=== PATIENT | female | born 1980 | race Caucasian/White ===

== ENCOUNTER → 2018-03-04 | Outpatient (CLI) | payer BC ==
--- NOTE | 2018-03-04 16:34 | KCIC ---
MRI Brain without contrast History: Left facial numbness, numbness in the face and legs for 2 weeks, headaches, blurred vision Technique: Multiplanar, multisequential noncontrast MR imaging was performed of the brain. Comparison: None Findings: There is no evidence of recent infarct or cytotoxic edema. The ventricles, sulci, and cisterns are within normal limits in size and configuration. There is no significant midline shift, intraaxial mass effect, or focal abnormal extra-axial fluid collection. Appearance of foci of increased FLAIR signal in the region of bilateral basal ganglia is likely artifactual as not confirmed on the T2 sequence. There is a tiny focus of T2 and FLAIR hyperintense signal of the posterior left centrum semiovale. There is no significant hemosiderin deposition of the brain parenchyma. There is preservation of the major intracranial flow-voids at the skull base. The mastoid air cells are aerated. The cerebellar tonsils are normal in location. There is no significant abnormality of the pineal gland or pituitary gland. Paranasal sinuses are mostly aerated other than negligible patchy ethmoid air cell mucosal thickening. There is preserved marrow signal of the clivus. Impression: 1. Other than a tiny focus of likely nonspecific gliosis of the posterior left centrum semiovale, no significant intracranial abnormality is identified. Electronically signed by: Gbaino Mccarty MD (03/04/2018 4:30 PM) [id number]
== END | disposition home or self-care (01) ==
LOC: KCIC MRI 14:28
PROVIDERS: ATTEND Family Medicine
DX: R20.0 Anesthesia of skin (principal); F17.200 Nicotine dependence, unspecified, uncomplicated
CPT/HCPCS: 70551